=== PATIENT | female | born 1955 | race Hispanic/Latino ===

== ENCOUNTER 2017-07-10 08:14 | Outpatient (CLI) | payer OTHER | END 2017-07-10 08:15 | disposition home or self-care (01) | LOC: BICMAMMO 08:14 | PROVIDERS: ATTEND Internal Medicine | DX: Z12.31 Encounter for screening mammogram for malignant neoplasm of breast (principal) | CPT/HCPCS: 77063; 77067 ==

== ENCOUNTER 2019-01-12 11:51 | Outpatient (CLI) | payer OTHER ==
--- NOTE | 2019-01-12 12:22 | RAD ---
Right hip 2 views HISTORY: Right hip pain. FINDINGS: Mild joint space narrowing, osteophytosis, and subchondral sclerosis. Femoral head contour is maintained. No acute fracture, dislocation, or aggressive osseous erosions. IMPRESSION: Mild osteoarthritic changes right hip.
--- NOTE | 2019-01-12 12:26 | RAD ---
AP pelvis one view HISTORY: Pelvic pain. FINDINGS: Sacral alae and pelvic rings are intact. Mild osteoarthritic changes of the hips, sacroilia c joints, and pubic symphysis. Postoperative changes lower lumbar spine. No acute fracture, dislocation, or aggressive osseous erosions. IMPRESSION: Mild osteoarthritic changes. Postoperative changes lower lumbar spine. No acute osseous abnormalities are demonstrated.
--- NOTE | 2019-01-12 12:55 | RAD ---
Right femur 2 views HISTORY: Right leg pain. FINDINGS: Mild degenerative changes of the hip and knee. Femoral shaft is intact. No acute fracture o r dislocation. IMPRESSION: No acute osseous abnormalities are demonstrated.
== END 2019-01-12 11:52 | disposition home or self-care (01) ==
LOC: BICRAD 11:51
PROVIDERS: ATTEND Family Medicine
DX: M25.551 Pain in right hip (principal); R10.2 Pelvic and perineal pain; M16.11 Unilateral primary osteoarthritis, right hip; Z96.641 Presence of right artificial hip joint
CPT/HCPCS: 72170

== ENCOUNTER 2019-07-12 08:35 | Outpatient (CLI) | payer OTHER ==
--- NOTE | 2019-07-12 10:48 | BD ---
BONE DENSITOMETRY USING DEXA: HISTORY: Postmenopausal screening for osteoporosis. FINDINGS: Right hip: BMD (g/cm2) Neck: 0.774 T-Score: -0.7 Z-Score: 0.5 Total 1.024 T-Score: 0.7 Z-Score: 1.5 Left hip: Neck: 0.765 T-Score: 0.8 Z-Score: 0.4 Total: 1.007 T-Score: 0.5 Z-Score: 1.4 Impression: No evidence of osteopenia/osteoporosis. POS: OFF
--- NOTE | 2019-07-12 11:42 | MMO ---
Bilateral MAMMO Bilat Screen [facility]. CLINICAL HISTORY: Patient is 64 years old and is seen for screening. The patient has no family history of breast cancer. The patient has no personal history of cancer. The patient has a history of right Excisional Biopsy in 2003 - benign. VIEWS: The views performed were: bilateral craniocaudal with tomosynthesis and bilateral mediolateral oblique with tomosynthesis. FILMS COMPARED: The present examination has been compared to prior imaging studies performed at [facility] on 06/19/2014, 06/26/2015, 07/14/2016 and 07/10/2017. This study has been interpreted with the assistance of computer-aided detection. MAMMOGRAM FINDINGS: The breasts are heterogeneously dense, which could obscure a lesion on mammography. There are no suspicious masses, suspicious calcifications, or new areas of architectural distortion. IMPRESSION: THERE IS NO MAMMOGRAPHIC EVIDENCE OF MALIGNANCY. A ROUTINE FOLLOW-UP MAMMOGRAM IN 1 YEAR IS RECOMMENDED. THE RESULTS OF THIS EXAM WERE SENT TO THE PATIENT. ACR BI-RADS Category 1 - Negative MAMMOGRAPHY NOTE: 1. A negative mammogram report should not delay a biopsy if a dominant of clinically suspicious mass is present. 2. Approximately 10% to 15% of breast cancers are not detected by mammography. 3. Adenosis and dense breasts may obscure an underlying neoplasm. Reported by: DEONDRE FIGUEREDO MD Electonically Signed: [id number]
== END 2019-07-12 08:36 | disposition home or self-care (01) ==
LOC: BICMAMMO 08:35
PROVIDERS: ATTEND Family Medicine
DX: Z12.31 Encounter for screening mammogram for malignant neoplasm of breast (principal); Z13.820 Encounter for screening for osteoporosis; M15.9 Polyosteoarthritis, unspecified; Z91.89 Other specified personal risk factors, not elsewhere classified
CPT/HCPCS: 77063; 77067; 77080